=== PATIENT | male | born 1955 | race Hispanic/Latino ===

== ENCOUNTER 2019-01-06 06:29 | Day surgery (SDC) | payer MEDICAID ==
[2018-12-29 10:41] VITALS: BMI 33.0
[2019-01-06] MEDS ORDERED: Propofol 10 mg/ml Inj (20 ML) ONE ×2 (08:13→08:29)
[2019-01-06] MEDS ORDERED: Sodium Chloride 0.9% 1,000 ML IV SCH (09:00)
[2019-01-06 14:30] VITALS: BP 121/76; PULSE 54; RESP 16; TEMP 97.4; O2SAT 96
== END 2019-01-06 10:10 | disposition home or self-care (01) ==
LOC: ENDO 06:29
PROVIDERS: ATTEND Internal Medicine Gastroenterology
DX: Z12.11 Encounter for screening for malignant neoplasm of colon (principal); D12.2 Benign neoplasm of ascending colon; D12.0 Benign neoplasm of cecum; K57.30 Diverticulosis of large intestine without perforation or abscess without bleeding; K64.1 Second degree hemorrhoids; I10 Essential (primary) hypertension
CPT/HCPCS: 45385; 88305; J2001; J2704; J7030